=== PATIENT | female | born 1975 | race Caucasian/White ===

== ENCOUNTER 2016-08-18 19:19 | Emergency (ER) | payer OTHER ==
[~2016-08-18] VITALS: Ht 172.7 cm; Wt 120.5 kg
[~2016-08-18 19:19] MED LIST: ACET-818 PO; ALBU8.5H3 INH; ALBU8.5H5 INH; AZIT250T94 PO; D-ME473S2 PO; DIAZ5TAB4 PO; HYDR-3498 PO; IPRA4AER INHALATION; MED4DP PO; OXYC-281 PO; PRED20TA PO; PROM25TA14 PO
[2016-08-18 19:54] VITALS: Ht 172.7 cm; Wt 120.5 kg
[2016-08-18] MEDS ORDERED: HYDROCODONE/APAP (5/325) TAB PO ONE (20:30)
--- NOTE | 2016-08-18 20:43 | ERD ---
ER Documentation Chief Complaint Date/Time DATE: 08/18/16 TIME: 20:35 Chief Complaint Back pain and collar bone fracture per verbatum HPI 40-year-old female presents with chief complaint of constant low back pain and neck pain that came on gradually post fall 2 days ago. States that pain is aggravated with movement, is currently rated an 8 out of 10 in severity. She has not taken any medication for pain relief, states that she has a severe allergy to NSAIDs. She currently denies loss of bowel control, urinary incontinence, dysuria, loss of range of motion in extremities or neck, and numbness between her legs. ROS All systems reviewed and are negative except as per history of present illness. Medications Home Meds Active Scripts Tramadol HCl (Tramadol HCl) 50 Mg Tablet, 50 MG PO BID, #20 TAB Prov:Arely Acosta PA-C 08/19/16 Albuterol Sulfate* (Proair HFA*) 8.5 Gm Hfa.aer.ad, 2 PUFF INH Q4, #1 INHALER Prov:KAI GARCIA PA-C 08/21/15 Prednisone* (Prednisone*) 20 Mg Tab, 40 MG PO DAILY for 4 Days, TAB Prov:KAI GARCIA PA-C 08/21/15 Hydrocodone Bit-Acetaminophen* ([place]*) 5-325 Mg Tab, 1 TAB PO Q6 Y for PAIN, # 10 TAB Prov:SOY YAP MD 07/19/15 Acetaminophen-Codeine* (Tylenol No.3*) 300-30 Mg Tablet, 1 TAB PO Q4H Y for PAIN , #5 TAB Prov:JAYESH CABAN NP 07/16/15 Dextromethorphan Hb-Promethazine Hcl* (Promethazine DM* Syrup) 473 Ml Syrup, 5 ML PO Q6 Y for COUGH, #120 ML Prov:DAILY LOYOLA DO 07/04/15 Methylprednisolone* (Medrol* DOSE PACK) 4 Mg/Dose-Pack Tab.ds.pk, 4 MG PO . DIRECTED, #1 PACKET Prov:DAILY LOYOLA DO 07/04/15 Azithromycin* (Zithromax*) 250 Mg Tablet, 250 MG PO .BRISA DIRECTED, #6 TAB TAKE 500 MG (2 TABS) THE FIRST DAY THEN 250 MG (1 TAB) DAYS 2-5 Prov:DAILY LOYOLA DO 07/04/15 Albuterol Sulfate* (Albuterol Sulfate* HFA) 8.5 Gm Hfa.aer.ad, 1-2 PUFF INH Q4 Y for SHORTNESS OF BREATH, #1 EA Prov:WESLY HAMMOND MD 12/29/14 Reported Medications Albuterol/Ipratropium* (Combivent Respimat*) 20-100 Mcg/Inh - 4 Gm Aer.w.adap, 1 PUFF INHALATION QID, #1 INHALER 06/23/15 Promethazine Hcl* (Phenergan*) 25 Mg Tablet, 25 MG PO Q4 Y for NEEDED, TAB 01/04/15 Oxycodone Hcl-Acetaminophen* (Percocet*) 5-325 Mg Tablet, 1-2 TAB PO DAILY Y for SEVERE PAIN LEVEL 7-10, TAB 01/04/15 Diazepam* (Diazepam*) 5 Mg Tablet, 5 MG PO DAILY Y for ANXIETY, TAB 01/04/15 Allergies Allergies: Coded Allergies: Sulfa (Sulfonamide Antibiotics) (Verified Allergy, Severe, SWELLING, ) Penicillins (Verified Allergy, Intermediate, 07/19/15) aspirin (Verified Allergy, Mild, BLEEDING, 07/19/15) NSAIDS (Non-Steroidal Anti-Inflamma (Verified Allergy, Unknown, 07/19/15) Uncoded Allergies: STEROIDS (Allergy, Severe, SWELLING, 08/02/13) PMhx/Soc History of Surgery: Yes Anesthesia Reaction: No Hx Neurological Disorder: No Hx Respiratory Disorders: Yes (ASTHMA) Hx Cardiac Disorders: No Hx Psychiatric Problems: Yes (ANXIETY) Hx Miscellaneous Medical Probl: Yes (CHRONIC BACK PAIN, CROHN'S) Hx Alcohol Use: No Hx Substance Use: No Hx Tobacco Use: Yes Smoking Status: Current every day smoker Physical Exam Vitals Vital Signs Date Time Temp Pulse Resp B/P Pulse Ox O2 Delivery O2 Flow Rate FiO2 08/18/16 19:54 98.9 70 18 126/76 100 Physical Exam GENERAL: Non-toxic. No apparent signs of distress. LUNGS: Clear to auscultation. No accessory muscle use. No wheezing, no crackles. No signs or symptoms of respiratory distress. HEART: Regular rate and rhythm. No murmurs, clicks, rubs or gallops. BACK: Midline tenderness over C3-C4 and L4-L5, no costovertebral tenderness. EXTREMITIES: No peripheral cyanosis or edema. No focal pain or notable trauma. Full range of motion. Good capillary refill. NEURO: The patient moves all 4 extremities with 5/5 strength. Cranial nerves are grossly intact. Normal mental status for age. Good muscle tone. Negative straight leg bilaterally SKIN: There is no apparent rash, petechiae, erythema or swelling. Good skin turgor. Results 24 hrs Current Medications Medications (Trade) Dose Ordered Sig/Ceci Route PRN Reason Start Time Stop Time Status Last Admin Dose Admin Acetaminophen/ Hydrocodone Bitart ([place] (5/325)) 1 tab ONCE ONCE PO 08/18/16 20:30 08/18/16 20:32 DC 08/18/16 21:10 Procedures/MDM Patient presented with pain over neck and lower back pain after fall 2 days ago. She states that she feels numbness in her left lower extremity, however on exam sensation was intact. She denies loss of bowel control or urinary incontinence. She rates her pain 8 8 out of 10 in severity. Based on patient' s complaint and recent trauma I ordered a CT scan of the lumbar spine. In addition I ordered an x-ray of the cervical spine. Patient was given [place] for pain control. Awaiting results of workup prior to further management. CT lumbar spine: Unremarkable CT scan of the lumbar spine X-ray cervical spine: No evidence of cervical spine fracture, lordosis is mildly straightened which may be from positioning but cannot exclude muscle spasm POC urine : Negative I explained the workup to the patient. Symptoms are likely due to muscle strain /spasm. I explained that pain may worsen over the next day. I gave RICE instructions. I provided a prescription for tramadol 50 mg since she is allergic to NSAIDs, sedating effects of this medication were discussed and patient advised not to drive or operate heavy machinery while using it. At this time a low suspicion for fracture, dislocation, cord compression, cauda equina syndrome, discitis/osteomyelitis, AAA, and epidural abscess. Patient is stable for discharge and outpatient management. Advised to follow- up with PCP in 1-2 days. Departure Diagnosis: Primary Impression: Injury of back Encounter type: initial encounter Qualified Code: S39.92XA - Injury of back , initial encounter Additional Impressions: Lumbar strain Encounter type: initial encounter Qualified Code: S39.012A - Lumbar strain, initial encounter Muscle spasm Condition: Arely Paulson PA-C Aug 18, 2016 20:43
--- NOTE | 2016-08-18 21:18 | RADRPT ---
PROCEDURE: XR Cervical Spine. CLINICAL INDICATION: Post traumatic neck pain after a fall TECHNIQUE: AP, lateral, . There is and odontoid views of the cervical spine were obtained. COMPARISON: None available FINDINGS: Mineralization is within normal limits. No fracture or osseous lesion is identified. Vertebral bod ies are normal in height. Cervical lordosis is straightened. No vertebral subluxation is seen. In tervertebral discs are normal in height. Facet joints appear maintained. Prevertebral soft tissues , predental space and atlantoaxial joint are unremarkable. RPTAT:HJJR IMPRESSION: 1. No evidence of cervical spine fracture. 2. The lordosis is mildly straightened which may be from positioning but cannot exclude muscle spas m. Physician Elena Date Time Electronically viewed and signed by Physician Elena on 08/18/2016 21:17 /
--- NOTE | 2016-08-19 00:03 | RADRPT ---
PROCEDURE: CT lumbar spine without contrast CLINICAL INDICATION: Numbness in left leg post fall with trauma to low back TECHNIQUE: CT scan of the lumbar spine was performed on a high-resolution multi-detector CT scanne r. No IV contrast was administered. Coronal and sagittal reformatted images were obtained from the axial source images. Images were reviewed on a high-resolution PACS workstation. Exam CTDI = 38.51 mGy and the DLP = 1093.47 mGy-cm. One or more of the following dose reduction techniques were used: - Automated exposure control. - Adjustment of the mA and/or kV according to patient size. - Use of iterative reconstruction technique. COMPARISON: X-rays of the lumbar spine of 06/18/2015 FINDINGS: There is preservation of the normal lumbar lordosis. Alignment remains intact. No acute fracture o r dislocation is seen. The vertebral body heights and intervertebral disk heights are all well pres erved. Posterior elements structures are equally unremarkable. The paraspinous soft tissues are unr emarkable. No mass, hematoma, or other soft tissue abnormality is seen. The patient appears to be s tatus post cholecystectomy. IMPRESSION: 1. Unremarkable CT scan of the lumbar spine. 2. No acute fracture or dislocation is identified. RPTAT: HJES .Hans Swanson MD, Date Time Electronically viewed and signed by .Hans Swanson MD, MD on 08/19/2016 00:03 .S/
[2016-08-19] MEDS ORDERED: TRAM50TA2 PO (00:14)
[2016-08-19 00:43] VITALS: BP 120/78; PULSE 78; RESP 18; TEMP 99
== END 2016-08-19 00:43 | disposition home or self-care (01) ==
LOC: FTE 19:19
DX: S39.012A Strain of muscle, fascia and tendon of lower back, initial encounter (principal); M62.838 Other muscle spasm; J45.909 Unspecified asthma, uncomplicated; F17.210 Nicotine dependence, cigarettes, uncomplicated; W19.XXXA Unspecified fall, initial encounter; Y92.9 Unspecified place or not applicable
CPT/HCPCS: 72040; 72131; Z7610